=== PATIENT | female | born 1980 | race Caucasian/White ===

== ENCOUNTER → 2021-08-06 | Outpatient (CLI) | payer BC ==
--- NOTE | 2021-08-06 14:23 | Diagnostic Imaging Report ---
Indication: Pain. Findings: 3 view ankle showed no fracture, dislocation or acute-appearing abnormality of spurring at the plantar calcaneus and degenerative changes to the ankle and hindfoot. No disruption of the mortise. Impression: No acute-appearing abnormality. Dictated by: Dictated on workstation # [id number]
--- NOTE | 2021-08-06 14:49 | Diagnostic Imaging Report ---
Indication: Left knee pain. Time of Exam: 12:38 PM 3 views of the left knee were obtained. Alignment is normal. Joint spaces are well maintained. Articular surfaces are smooth. There is some spurring of the medial compartment as well as spurring of the tibial spines. There is mild patellofemoral degenerative changes well. No fracture, dislocation or effusion is seen. Impression: Mild degenerative changes. No acute bony abnormality is detected. Dictated by: Dictated on workstation # [id number]
== END ==
LOC: RAD FS 12:07
PROVIDERS: ATTEND Nurse Practitioner Family
DX: M17.12 Unilateral primary osteoarthritis, left knee (principal); M25.571 Pain in right ankle and joints of right foot
CPT/HCPCS: 73562; 73610